=== PATIENT | female | born 1955 | race Caucasian/White ===

== ENCOUNTER 2017-11-01 09:45 | Day surgery (SDC) | payer MEDICARE ==
[2017-10-29 10:31] LABS: HEMATOCRIT 43.6 % (36.0-48.0); HEMOGLOBIN 14.5 g/dL (12-16); MCH 29.4 pg (26.0-34.0); MCHC 33.3 g/dL (31.0-37.0); MCV 88.4 fL (80.0-100.0); MEAN PLATELET VOLUME 13.4 fL (7.4-10.4); RBC 4.93 10x6/uL (4.00-5.40); RDW 13.8 % (11.5-14.5); WBC 5.9 10x3/uL (4.8-10.8)
[~2017-11-01] VITALS: Ht 170.2 cm; Wt 81.6 kg
--- NOTE | ~2017-11-01 | OP ---
PATIENT NAME: JUANCARLOS URBANO MEDICAL RECORD: [id number] :53 LOCATION:D.OPS ADMISSION DATE: SURGEON: RAE MONTGOMERY MD DATE OF OPERATION: 11/01/2017 PREOPERATIVE DIAGNOSES: Impingement syndrome of the right shoulder with rotator cuff tear. POSTOPERATIVE DIAGNOSES: Impingement syndrome of the right shoulder with rotator cuff tear. PROCEDURES: 1. Arthroscopic distal clavicle excision under separate incision. 2. Arthroscopic subacromial decompression with acromioplasty and bursectomy. SURGEON: Rae Montgomery MD ANESTHESIA: General. INTRAOPERATIVE COMPLICATIONS: None. SUMMARY OF PATHOLOGIC FINDINGS: The patient with partial thickness tearing to the superficial aspect of the rotator cuff, at no point was it full thickness. Articular side was pristine and the superficial side had clearly attritional rotator cuff tearing changes from impingement. 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 OPERATIVE SUMMARY IN DETAIL: After obtaining the appropriate preoperative orthopedic surgery consent as well as anesthetic consultation, evaluation and clearance, the patient was brought to the operating room and placed on operating table in supine position. After general laryngeal mask airway was administered, the patient was placed in a right lateral decubitus position. All pressure points well padded to include down leg peroneal pad as well as axillary roll. The patient was held firmly to the operating table using the vacuum pack suction system. Left upper extremity and shoulder were then prepped and draped in routine sterile fashion. The arm was held in the Arthrex traction boom at 30 degrees of forward flexion, 30 degrees of abduction, and 10 pounds traction laterally. Arthroscopy was established in the glenohumeral joint from posterior portal. Anterior portal was established in anterior safe interval. Diagnostic arthroscopy showed the above findings. Attention was turned to the subacromial space. While on subacromial space, [place] tissue ablation system was used to denude the undersurface of the acromion of all soft tissue elements. A 5.0 barrel bur was used to perform acromioplasty at the level of the acromioclavicular joint. Attention was then turned to distal clavicle. Through separate anterior arthroscopic portal, the 5.0 barrel bur was used under direct arthroscopic visualization to resect the end of the clavicle and take the osteophytes down for distal clavicle as well. Having completed this, attention was turned to the rotator cuff. Debridement of partial thickness attritional tearing was carried out along with removal of all the bursa in the subacromial space. Having completed this, arthroscopy portals were closed in routine interrupted fashion using 4-0 Prolene. Sterile dressings were applied. The patient was awakened and taken to the recovery room in stable condition. All final needle and sponge counts were correct. OPERATIVE REPORT [id number] URBANOJUANCARLOSCHRISTINA RUELAS TRANSINT:[id number] Voice Confirmation ID: [id number] DOCUMENT ID: [id number] VALENTINA GRIFFIN, RAE DUBOIS at 1714 CC: [id number] DICTATION DATE: 11/01/17 1356 PIANO REGULATOR: 11/01/17 1601 [facility] 11/01/17 [address] [place] [address]
[~2017-11-01 09:45] MED LIST: BENADRYL25 MG PO; BUSPIRONE HCL30 MG PO; DILAUDID2 MG PO; EFFEXOR XR150 MG PO; EFFEXOR50 MG PO; INDERAL 40 MG T40 MG PO; MAGNESIUM SUPPLEMENT PO; METOPROLOL TART50 MG PO; MOBIC7.5 MG PO; OMEPRAZOLE20 M1 PO; PRILOSEC20 MG PO; PROTONIX40 MG PO; SYNTHROID100 MCG PO; TOPAMAX25 MG PO; TREXIMET 85-5001 TAB PO; ZEGERID OTC 201 EACH PO; ZOCOR20 MG PO
[2017-11-01 10:05] VITALS: Ht 170.2 cm; Wt 81.6 kg
[2017-11-01] MEDS ORDERED: DILAUDID2 MG PO (13:46)
== END 2017-11-01 16:00 | disposition home or self-care (01) ==
LOC: D.OPS 09:45 → D.PAN 11:45 → D.OPS 11:45 → D.PAN 12:45 → D.OPS 14:45 → D.PAN 14:45 → D.OPS 16:00 → D.PAN 16:55
PROVIDERS: Anesthesiology
DX: M75.41 Impingement syndrome of right shoulder (principal); M75.111 Incomplete rotator cuff tear or rupture of right shoulder, not specified as traumatic; Z01.812 Encounter for preprocedural laboratory examination

== ENCOUNTER 2018-12-13 15:59 | Emergency (ER) | payer MEDICARE ==
[~2018-12-13] VITALS: Ht 170.2 cm; Wt 84.1 kg
[2018-12-13 16:36] VITALS: Ht 170.2 cm; Wt 84.1 kg
[2018-12-13 17:53] VITALS: BP 129/76
== END 2018-12-13 17:45 | disposition home or self-care (01) ==
LOC: D.ER 15:59
DX: G43.909 Migraine, unspecified, not intractable, without status migrainosus (principal)

== ENCOUNTER 2019-04-03 17:03 | Emergency (ER) | payer MEDICARE ==
[~2019-04-03] VITALS: Ht 170.2 cm; Wt 85.9 kg
[2019-04-03 17:22] VITALS: BP 152/99; Ht 170.2 cm; Wt 85.9 kg
== END 2019-04-03 19:33 | disposition left against medical advice (07) ==
LOC: D.ER 17:03
DX: G43.909 Migraine, unspecified, not intractable, without status migrainosus (principal)

== ENCOUNTER 2019-04-08 16:47 | Emergency (ER) | payer MEDICARE ==
[~2019-04-08] VITALS: Ht 170.2 cm; Wt 85.0 kg
[2019-04-08 16:51] VITALS: Ht 170.2 cm; Wt 85.0 kg
[2019-04-08 17:47] VITALS: BP 126/82
== END 2019-04-08 17:50 | disposition home or self-care (01) ==
LOC: D.ER 16:47
DX: G43.909 Migraine, unspecified, not intractable, without status migrainosus (principal)

== ENCOUNTER 2020-09-18 06:58 | Outpatient (CLI) | payer MEDICARE ==
--- NOTE | 2020-09-17 14:55 | NUR ---
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
[~2020-09-18] VITALS: Ht 170.2 cm; Wt 77.3 kg
--- NOTE | ~2020-09-18 | HEMODYNAMI ---
PATIENT:JUANCARLOS URBANO MEDICAL RECORD: [id number] : 53 LOCATION:ALEX ADMISSION DATE: 09/18/20 Generatedon:111:41 Patient name: JUANCARLOS URBANO Patient #: [id number] SSN: : 1955 Date of study: 09/18/2020 Page: Of Hemodynamic Procedure Report Patient Data Patient Demographics Procedure consent was obtained First Name: JUANCARLOS Gender: Female Last Name: YOLIE : 1955 Middle Initial: SURAJ Age: 65 year(s) Patient #: [id number] Race: Unknown Additional ID: [id number] Contact details [address]: [address] [place] [address] [place] State: [place] City: [place] Zip code: [address] Past Medical History Allergies Allergen Reaction Date Comments Reported Other allergy 09/18/2020 allpurinol, hydrocodone, betadine, tape Admission Admission Data Admission Date: 09/18/2020 Admission Time: 6:58 Procedure Procedure Types Cath Procedure Peripheral Cath Diagnostic Procedure Gastric G J Tube Replacement Procedure Description Procedure Date Procedure Date: 09/18/2020 Procedure Start Time: 10:41 Procedure Staff Name Function Calvin Hernandez MD Performing Physician ANTOLIN MEYERS RT Monitor Nahid Pineda RT Scrub Melly Alvarez RN Nurse Judi Nunn RN Nurse Procedure Data Cath Procedure Fluoroscopy Diagnostic fluoroscopy Total fluoroscopy Time: time: 36.4 min 36.4 min Contrast Material Contrast Material Type Amount (ml) Isovue 300 70 Diagnostic catheters Device Type Used For End Catheter Placement Merit Impress KA2 5Fr 65CM catheter ([id number]) Procedure Medications Medication Administration Route Dosage Lidocaine 1% added to field 20 Heparin Flush Bag added to field 1 bags (1000units/500ml NS) Versed I.V. 1 mg Fentanyl I.V. 50 mcg Fentanyl I.V. 50 mcg Versed I.V. 1 mg Hemodynamics Rest Heart Rate: 76 (bpm) Snapshots Pre Cath Intra NCS Post Cath Vital Signs Time Heart Resp SPO2 etCO2 NIBP (mmHg) Rhythm Pain Sedation Rate (ipm) (%) (mmHg) Status Level (bpm) 10:32:52 69 15 100 31.3 143/84(121) NSR 0 (11) 10(A) , No pain 10:37:04 75 17 100 32.8 155/83(128) NSR 0 (11) 10(A) , No pain 10:41:20 72 20 100 38 140/78(119) NSR 0 (11) 10(A) , No pain 10:45:30 74 22 100 35 140/80(112) NSR 0 (11) 10(A) , No pain 10:49:36 73 20 99 37.2 132/78(104) NSR 0 (11) 10(A) , No pain 10:53:44 74 21 99 37.2 137/79(110) NSR 0 (11) 10(A) , No pain 10:57:56 73 21 100 37.2 134/75(114) NSR 0 (11) 10(A) , No pain 11:02:03 73 23 98 35.8 136/81(113) NSR 0 (11) 10(A) , No pain 11:06:13 72 22 98 35.1 139/78(111) NSR 0 (11) 10(A) , No pain 11:10:23 71 23 99 33.5 140/82(108) NSR 0 (11) 10(A) , No pain 11:14:33 69 22 100 35.8 143/79(112) NSR 0 (11) 10(A) , No pain 11:18:45 66 21 33.5 140/82(110) NSR 0 (11) 10(A) , No pain 11:22:53 68 26 30.5 144/83(113) NSR 0 (11) 10(A) , No pain 11:27:05 69 21 35 141/81(117) NSR 0 (11) 10(A) , No pain 11:31:15 70 20 35 139/83(107) NSR 0 (11) 10(A) , No pain 11:35:25 70 22 35 141/83(114) NSR 0 (11) 10(A) , No pain 11:39:34 69 21 32 143/83(108) NSR 0 (11) 10(A) , No pain Medications Time Medication Route Dose Verified Delivered Reason Notes Effec tiveness by by 10:30:34 Lidocaine 1% added 20ml M J Long M J Long used for to vial MD GRIFFIN procedure field 10:30:47 Heparin Flush added 1 M J Long M J Long used for Bag to bags MD GRIFFIN procedure (1000units/500ml field NS) 10:40:24 Fentanyl I.V. 50 M J David Lau for aga Nunn sedation RN 10:40:45 Versed I.V. 1 mg M J Long Judi for MD Nunn sedation RN 10:45:10 Versed I.V. 1 mg M J David Lau for MD Nunn sedation RN 10:45:46 Fentanyl I.V. 50 M J Long Judi for aga Nunn sedation international marketing coordinator Log Time Note 10:07:56 Use device set IR Diagnostic 10:08:14 Bag Decanter (2002S) opened to sterile field. 10:08:14 Sterile Angiographic Pack opened to sterile field. 10:08:15 Tegaderm 4 x 4 (1626W) opened to sterile field. 10:17:07 Judi Nunn RN sent for patient. Start room use. 10:17:08 Time tracking: Regular hours (M-F 7:00 - 5:00) 10:17:20 Patient received from Outpatients to IR Alert and oriented. Tansferred to table in Supine position. 10:17:22 Signed procedure consent form obtained from patient. 10:17:23 Warm blankets applied, and tory hugger turned on for patient comfort. 10:17:34 Plan of Care:Hemodynamics will remain stable., Cardiac rhythm will remain stable., Comfort level will be maintained., Respiratory function will remain adequate., Patient/ family verbilizes understanding of procedure., Procedure tolerated without complication., Recovers from procedure without complications.. 10:17:35 Correct patient and procedure confirmed by team. 10:17:36 ECG and BP/O2 sat monitors applied to patient. 10:17:37 - 10:17:43 H&P Date Dictated: 09/18/2020 H&P Addendum completed by physician on day of procedure. (MUST COMPLETE FOR ALL OUTPATIENTS). 10:17:50 Pre-procedure instructions explained to patient. 10:17:50 Pre-op teaching completed and patient verbalized understanding. 10:18:06 Patient NPO since Midnight. 10:25:36 Patient allergic to Other allergyallpurinol, hydrocodone, betadine, tap e 10:25:41 Is the patient allergic to Iodine/contrast media? No. 10:25:44 Is patient on blood thinner?No 10:25:45 Patient diabetic? No. 10:25:48 - 10:25:49 ----Pre-sedation anethsthesia assessment.---- 10:25:52 Previous problem with sedation/anesthesia? No ? 10:25:53 Snore? Yes 10:25:55 Sleep apnea? No 10:25:56 Deviated septum? No 10:25:58 Opens mouth fully? Yes 10:26:00 Sticks out tongue? Yes 10:26:04 Airway obstruction? No ? 10:26:09 Dentures? No ? 10:26:11 - 10:26:27 IV patent on arrival in right wrist with 0.45%NaCl at KVO. 10:26:41 Left abdomen area was prepped with chlora-prep and draped in sterile fashion 10::46 Alarms reviewed by Wally Urbina 10::46 Sharps counted by scrub and verified by Michele 10:26:48 - 10:26:50 JEJUNAL 18Fr 45cm Tube ([id number]) opened to sterile field. 10:30:34 Lidocaine 1% 20ml vial added to field was administered by Calvin Hernandez MD; used for procedure; Verbal order read back and verified. 10:30:47 Heparin Flush Bag (1000units/500ml NS) 1 bags added to field was administered by Calvin Hernandez MD; used for procedure; Verbal order read back and verified. 10:31:41 Vital chart was started 10:32:11 Baseline sample Acquired. 10:32:28 Full Disclosure recording started 10:32:31 - 10:38:10 Physician arrived 10:38:11 --------ALL STOP TIME OUT------ 10:38:12 Final Timeout: patient, procedure, and site verified with staff and physician. All members of the team are in agreement. 10:38:20 Left abdomen site verified by team. 10:38:41 Sedation plan: IV Moderate Sedation Medication:Versed, Fentanyl 10:40:24 Fentanyl 50 mcg I.V. was administered by Judi Nunn RN; for sedation; Verbal order read back and verified. 10:40:31 Procedure started. 10:40:45 Versed 1 mg I.V. was administered by Judi Nunn RN; for sedation; Verbal order read back and verified. 10:41:30 Local anesthetic to Abdominal area with Lidocaine 1% by Calvin Hernandez MD.INITIAL ACCESS ONLY 10:42:55 GLIDE WIRE .038 180cm ANGLED (XB2829) opened to sterile field. 10:45:10 Versed 1 mg I.V. was administered by Judi Nunn RN; for sedation; Verbal order read back and verified. 10:45:46 Fentanyl 50 mcg I.V. was administered by Judi Nunn RN; for sedation; Verbal order read back and verified. 10:49:49 GRADY 180cm wire ([id number]) opened to sterile field. 10:51:27 GLIDE CATHETER 5FR ANGLED 65cm (CG507) opened to sterile field. 10:52:32 TORQUE DEVICE PLASTIC .038 ( TD01) opened to sterile field. 11:00:08 A Merit Impress KA2 5Fr 65CM catheter ([id number]) was opened to sterile field . 11:09:53 ROADRUNNER .035 145 glide wire (V45645) opened to sterile field. 11:34:07 Procedure ended.(Physican Out) 11:34:41 Fluoroscopy time 36.40 minutes. 11:34:51 Dose Area Product 559 mGy/cm. 11:34:55 Contrast amount:Isovue 300 70ml. 11:34:57 Sharps counted by scrub and verified by R.N. 11:35:08 Post Abdominal area:stable, soft, clean and dry 11:35:43 Post procedure instruction explained to patient.Patient verbalizes understanding. 11:35:45 Procedure and supply charges have been captured, reviewed, submitted an d are correct. 11:36:32 See physician's report for complete and final results. 11:36:36 Patient transfered to Outpatients with Stretcher. 11:40:42 End room use (Document Last) 11:41:03 Vital chart was stopped Device Usage Item Name Manufacture Quantity Catalog Hospital Part Current Minimal Lot# / Number Charge Number Stock Stock Serial# Code Bag Decanter Microtek 1 [id number] [id number] 5 () Medical Inc. Sterile Cardinal 1 [id number] 062179 063746 5 Angiographic Health Pack Tegaderm 4 x 3M 1 1626W [id number] [id number] [id number] 5 4 (1626W) JEJUNAL 18Fr [place] 1 0200-18 455451 009896 046835 5 45cm Trigemina (823200) GLIDE WIRE Terumo 1 PB8040 724512 585188 5 .035 180CM STRAIGHT (QT9469) GLIDE WIRE Terumo 1 PM8508 283911 434654 5 .038 180cm ANGLED (OT2782) GRADY 180cm [employer] 2 Q04596 028493 233930 5 wire (I68044) GLIDE Terumo 1 CG507 060735 591099 5 CATHETER 5FR ANGLED 65cm (CG507) TORQUE [place] 1 TD01 479289 357249 705654 5 DEVICE Scientific PLASTIC .038 ( TD01) Merit Merit 1 [id number] 270319 684041 5 Impress KA2 Medical 5Fr 65CM catheter ([id number]) [facility] 1 D95504 187359 764207 660106 5 .035 145 glide wire (U70164) Signature Audit [place] Stage Time Signature Unsigned Intra-Procedure 09/18/2020 ANTOLIN MEYERS RT 11:41:00 AM (R) [facility] [address] [place] [address]
[~2020-09-18 06:58] MED LIST changes: +AJOVY225 MG/1.5 SC; +ATIVAN0.5 MG PO; +BACLOFEN10 MG PO; +BOTOX200 UNIT INTRADERM; +BYDUREON P2 MG/0.65 SC; +COZAAR100 MG PO; +JARDIANCE10 MG PO; +LIPITOR80 MG PO; +NORVASC10 MG PO; +STADOL NASAL S2.5 ML NASAL; +TRICOR145 MG PO; +ZOFRAN ODT4 MG/UDTAB PO
[2020-09-18 09:25] VITALS: BP 139/75; Ht 170.2 cm; Wt 77.3 kg
[2020-09-18 09:52] LABS: BASOPHILS 0.5 % (0-2); EOSINOPHILS 0.4 % (0-7); HEMATOCRIT 43.1 % (36.0-48.0); HEMOGLOBIN 14.2 g/dL (12-16); IMMATURE GRANULOCYTES 0.4 % (0-5); LYMPHOCYTE ABS# 1.26 10x3/uL (1.18-3.74); LYMPHOCYTES 22.7 % (15-50); MCH 28.9 pg (26.0-34.0); MCHC 32.9 g/dL (31.0-37.0); MCV 87.8 fL (80.0-100.0); MONOCYTES 10.3 % (2-11); NEUTROPHIL ABS# 3.64 10x3/uL (1.56-6.13); NEUTROPHILS 65.7 % (40-80); PLATELET COUNT 196 10x3/uL (130-400); RBC 4.91 10x6/uL (4.00-5.40); RDW 15.3 % (11.5-14.5); WBC 5.5 10x3/uL (4.8-10.8)
[2020-09-18 10:01] LABS: APTT 29.6 SECONDS (22.8-39.4); INR 0.94 (0.85-1.17); PROTIME 11.6 SECONDS (11.6-15.0)
[2020-09-18 10:06] LABS: CALC OSMOLALITY 273 mosm/kg (275-300); CALCIUM 9.1 mg/dL (8.5-10.1); CARBON DIOXIDE 31.5 mmol/L (21.0-32.0); CHLORIDE - SERUM 99 mmol/L (98-107); CREATININE - SERUM 0.7 mg/dL (0.6-1.3); GLUCOSE 112 mg/dL (74-106); POTASSIUM - SERUM 4.1 mmol/L (3.5-5.1); SODIUM 136 mmol/L (136-145); UREA NITROGEN 15 mg/dL (7-18); eGFR NON AFRICAN AMERICAN 89 mL/min (90-120)
--- NOTE | 2020-09-18 13:09 | NUR ---
GONE TO RADIOLOGY FOR SWALLOW STUDY. VSS
--- NOTE | 2020-09-18 14:00 | NUR ---
DISCHARGE INSTRUCTIONS REVIEWED WITH PT AND SPOUSE. PROVIDED COPY TO PT/SPOUSE. BOTH VOICED UNDERSTANDING.
--- NOTE | 2020-09-18 14:44 | NUR ---
DISCHARGED VIA W/C, ACCOMPANIED BY MARIE STUDENT NURSE, TO [facility] WITH SPOUSE DRIVING. ALL BELONGINGS WITH SPOUSE. PT WITHOUT C/O VOICED.
== END 2020-09-18 14:44 | disposition home or self-care (01) ==
LOC: D.RAD 06:58
PROVIDERS: Specialist; ATTEND Surgery
DX: K31.84 Gastroparesis (principal); R19.8 Other specified symptoms and signs involving the digestive system and abdomen; R63.4 Abnormal weight loss; R62.7 Adult failure to thrive; Z68.28 Body mass index [BMI] 28.0-28.9, adult